=== PATIENT | female | born 1930 | race Caucasian/White ===

== ENCOUNTER 2022-06-12 00:36 | Emergency (ER) | payer OTHER, MEDICARE ==
[2022-06-12] MEDS ORDERED: GELATIN SPONGE,ABSORB (SMALL) 1 EACH SPONGE TOPICAL STA (00:42)
[2022-06-12 00:48] VITALS: RESP 18; TEMP 98.2
--- NOTE | 2022-06-12 01:29 | ED ---
Wound/Laceration HPI - General Stated Complaint: Lac Time Seen by Provider: 06/12/22 00:38 Source: patient, EMS, RN notes reviewed, old records reviewed Mode of arrival: EMS Limitations: no limitations - History of Present Illness Initial Comments: This is an 89-year-old female to the emergency department for evaluation. Patient presents today for evaluation regards to reevaluation of wound. Patient has skin tear wound left lower extremity significant history of blood thinner, patient is on [place]. Patient is very thin friable skin with significant swelling and edema. Patient presents today because wound started bleeding again. -: days(s) (Initial injury was 4 days ago) Extremity Location: Left: Lower Leg Place: home Patient Tetanus UTD: Yes Context: accidental Associated Symptoms: none Treatments Prior to Arrival: bandage Review of Systems ROS Statement: Those systems with pertinent positive or pertinent negative responses have been documented in the HPI. ROS Other: All systems not noted in ROS Statement are negative. General Exam Limitations: no limitations General appearance: alert, in no apparent distress Head exam: Present: atraumatic, normocephalic, normal inspection Eye exam: Present: normal appearance, PERRL, EOMI. Absent: scleral icterus, conjunctival injection, periorbital swelling ENT exam: Present: normal exam, mucous membranes moist Neck exam: Present: normal inspection. Absent: tenderness, meningismus, lymphadenopathy Respiratory exam: Present: normal lung sounds bilaterally. Absent: respiratory distress, wheezes, rales, rhonchi, stridor Cardiovascular Exam: Present: regular rate, normal rhythm, normal heart sounds. Absent: systolic murmur, diastolic murmur, rubs, gallop, clicks GI/Abdominal exam: Present: soft, normal bowel sounds. Absent: distended, tenderness, guarding, rebound, rigid Extremities exam: Present: normal inspection, full ROM, normal capillary refill, other ((4 extremities skin tear with significant active bleeding data arterial). Absent: tenderness, pedal edema, joint swelling, calf tenderness Back exam: Present: normal inspection Neurological exam: Present: alert, oriented X3, CN II-XII intact Psychiatric exam: Present: normal affect, normal mood Skin exam: Present: warm, dry, intact, normal color. Absent: rash Course Vital Signs 06/12/22 00:46 Temperature 98.2 F Pulse Rate 77 Respiratory 18 Rate Blood Pressure 157/82 O2 Sat by Pulse 93 L Oximetry - Reevaluation(s) Reevaluation #1: 06/12/22 01:28 Medical records reviewed Reevaluation #2: 06/12/22 01:28 Patient informed results and questions answered Reevaluation #3: 06/12/22 01:28 Patient does have laceration and skin tear to left leg 06/12/22 01:29 Wound is reviewed bandage here in the ER fortified with [place] Medical Decision Making - Medical Decision Making 89-year-old female given wound care instructions, wound re-bandaged, bleeding is improving Disposition Clinical Impression: Encounter for evaluation of wound Disposition: HOME SELF-CARE Condition: Good Instructions (If sedation given, give patient instructions): Acute Wound Care (ED), Chronic Wound Care (ED) Is patient prescribed a controlled substance at d/c from ED?: No Referrals: None,Stated [Primary Care Provider] - 1-2 days Time of Disposition: 01:45
[2022-06-12 02:37] VITALS: BP 122/64; PULSE 67
== END 2022-06-12 02:48 | disposition home or self-care (01) ==
LOC: EC 00:36
DX: Z48.00 Encounter for change or removal of nonsurgical wound dressing (principal)
CPT/HCPCS: 99283

== ENCOUNTER → 2022-07-18 | Outpatient (CLI) | payer MEDICARE, OTHER ==
--- NOTE | 2022-07-18 15:37 | P.PAINPG ---
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 She has underwent receiving a neurostimulator trial which was ineffective in 2013, as well as receiving R Pelvic Sympathetic Nerve Blocks which provide little relief. She admits to having the intrathecal pain pump in place for the ensuing groin pain. She receives 1.751mg/day of Hydromorphone and states it is due for a refill on 07/29/22. Pt states pain level is at 8 /10 in intensity, constant, localized in the BL groin, throbbing in character without radiation. Pain is provoked by lifting. Pain is alleviated by heat, medications, repositioning and rest. PMH: HTN, Hyperlipidemia, NIDDM, AVS PSH: MedTronic Intrathecal Pain Pump, Colon Resection (2011), Hx of Skin CA (2017, 2018), Cervical Surgery (1997, 2000), L Knee Surgery (2015, 2016), Tonsillectomy (1944), Hysterectomy (1988), Appendectomy (2011), Hernia Repair (1979), Neurostimulator and removal (2013), Cardiac Stent (2018), BL SI injections, R Pelvic Sympathetic Nerve Block SH: Negative x 3. and lives w spouse. FH: CAD All: See list Meds: [place], Neurontin among others REVIEW OF ORGAN SYSTEMS: CONSTITUTIONAL: No fevers or chills. No recent weight loss. NEUROLOGICAL: + numbness and tingling along the distal extremities. No seizure disorders or headaches. MUSCULOSKELETAL: + pain PSYCHIATRIC: Denies current depression or suicidal thoughts. Physical Examinations : Constitutional : Cooperative , not in acute distress . Neurologic : Cranial nerve II to XII intact. No focal neurological deficits. Psychiatric : alert & oriented x 3. Matching mood & appropriate affect. Judgment & insight intact. Musculoskeletal : Cervical Spine Motor strength in the deltoid and biceps: Normal right side. Normal Left side Motor strength biceps and the wrist extensors: Normal right side . Normal left side Motor strength in the triceps muscle: Normal right side. Normal left side Deep tendon reflexes: Normal at the biceps. Normal at Brachioradialis. Normal at triceps Vertebral body tenderness to deep palpation over Cervical facet loading test: positive bilaterally Spurling test: positive bilaterally Neck distraction test: positive bilaterally Olya sign: positive bilaterally Lumbar spine Motor strength lower extremities ,thigh and legs 5/5 Right side , 5/5 Left side Deep tendon reflexes : Normal Knee Jerk. Normal Ankle Jerk Vertebral body tenderness over Lumbar facet Loading Test: positive Right / positive Left Range of motion of the lumbar spine Flexion 30 degrees, extension 10 degrees Straight Leg Raise test: Left/ Right positive at degree Roel test: positive right / positive left. Severe tenderness over the Sacroiliac joint on the Right / Left sides Gaenslen test: positive bilaterally Seated flexion test: positive bilaterally. 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 Risks, benefits of procedure discussed and patient verbalized understanding. Admits to aspirin or anti- coagulant use or medical history of diabetes. Protocol for discontinuation/ continuation of medications anand procedure discussed. All questions answered. I have spent greater than 30 minutes on patient care today. Dr Mcdowell was available by phone for the evaluation of this patient. The time was used to review the medical records including relevant urine studies and Prescription history (MAPs), review of the available imaging, evaluation and examination of the patient, coordination of care with the medical staff and if applicable referring physicians, as well as creation of the medical record Controlled Substance Measures - Controlled Substance Measures Is patient prescribed a controlled substance at discharge?: No
[2022-07-19 07:09] VITALS: BP 125/73; PULSE 78; RESP 18; TEMP 98
== END ==
LOC: PNWHC3 11:22
PROVIDERS: ATTEND Specialist
DX: R10.2 Pelvic and perineal pain (principal); Z91.040 Latex allergy status; Z88.6 Allergy status to analgesic agent; Z90.49 Acquired absence of other specified parts of digestive tract
CPT/HCPCS: 99202

== ENCOUNTER → 2022-07-26 | Day surgery (SDC) | payer MEDICARE, OTHER ==
[~2022-07-26] MED LIST: LACTATED RINGERS 1,000 ML IV SCH
[2022-07-26 11:36] VITALS: BP 138/77; PULSE 70; RESP 20; TEMP 98
--- NOTE | 2022-07-26 13:03 | P.PCN ---
Date of Procedure: 07/26/22 Description of Procedure: Preoperative diagnosis: Chronic pelvic pain after colectomy and chronic pain syndrome Status post intrathecal pump for chronic pain management Postoperative diagnosis: Chronic pelvic pain after colectomy and chronic pain syndrome Status post intrathecal pump for chronic pain management PROCEDURES: 1. Intrathecal pump analysis. 2. Intrathecal pump reprogramming. 3. Intrathecal pump refill ANESTHESIA: None. EBL: None. COMPLICATIONS: None. IV FLUIDS: None. PROCEDURE INDICATION: Patient is well known to pain clinic for management of intrathecal pump for chronic pain management. Patient denied any side effects with the medications. Rated his pain is 4 out of 10 in severity. On examination lower extremity muscle strength normal, no clonus. Patient came here for pump refill. PROCEDURE DESCRIPTION: The patient was seen and identified in the preoperative area. Risks, benefits, complications, and alternatives were discussed with the patient. The patient agreed to proceed with the procedure. Intrathecal pump was analyzed and displayed the following information: Type: SynchroMed Type II B Medication: Hydromorphone 10 MG/ml infusion at 1.751 mg/day Pump Volume: 20 ml Bieber Volume: 4.2 ml PTM: Disabled At this time, the area of the intrathecal pump was exposed, prepped with ChloraPrep x2 , and draped in the usual sterile fashion. After which, the Truviso template was used to identify the area of the skin overlying the refill port. After which, a 22-gauge Bass needle attached to an extension tubing, which was clamped, attached to a syringe and inserted through the skin into the refill port. At that point, 4 mL of clear fluid was aspirated. The tubing was reclamped. This was discarded. A new medication was then iden tified from pharmacy, . This was then attached to a filter, which was primed and subsequently injected into the pump in increments with intermittent aspiration to ensure placement into the intrathecal pump. At this point, the pump was reprogrammed. The dose was adjusted : none Type: SynchroMed Type II B Medication: Medication: Hydromorphone 10 MG/ml infusion at 1.751 mg/day Bupivacaine 5 MG per mL infusion at 0.4997 MG per day Pump Volume: 20 ml Bieber Volume: 20 ml Lo Bieber Alarm Date: 12 weeks PTM: Disabled The patient tolerated the procedure well and was sent home from the discharge area once meeting discharge criteria. Plan: The patient will follow up for further management and pump refills. Medications given : Naloxone 4 mg intranasal for respiratory depression and dispense #2 as needed. .
== END ==
LOC: ORPAIN 11:10
DX: Z45.1 Encounter for adjustment and management of infusion pump (principal); G89.4 Chronic pain syndrome; Z79.891 Long term (current) use of opiate analgesic
CPT/HCPCS: 62370; G0463; 99211